=== PATIENT | male | born 1955 | race Two or more races ===

== ENCOUNTER 2023-12-04 09:34 | Outpatient (AMB) | payer OTHER, SELFPAY ==
--- NOTE | 2023-12-04 10:07 | PD.ORTHCLVIS ---
Vital signs 12/04/23 10:08 Height 1.7 m Height Method Stated Weight 117.934 kg Weight Measurement Method Standing Scale BMI 40.7 BP 119/75 Blood Pressure Source Automatic Cuff Blood Pressure Location Right Upper Arm Position Sitting Respiration 19 Pulse 74 Pulse Source Monitor Temp 97.7 F Temp Source Temporal Artery Scan Pulse Oximetry (%) 94 L Oxygen Delivery Method Room Air Med/Allergies Allergies & Medications Allergies No Known Allergies Allergy (Verified 12/04/23 10:09) Medication Reconciliation amlodipine 10 mg tablet 10 mg PO QDAY 08/24/18 [History Confirmed 12/04/23] methotrexate sodium 2.5 mg tablet 15 mg PO QWEEK 08/01/21 [History Confirmed 12/04/23] atenolol 50 mg tablet 50 mg PO DAILY 03/29/23 [History Confirmed 12/04/23] atorvastatin 20 mg tablet 20 mg PO DAILY 03/29/23 [History Confirmed 12/04/23] cholecalciferol (vitamin D3) 50 mcg (2,000 unit) capsule 50 mcg PO DAILY 03/29/23 [History Confirmed 12/04/23] dapagliflozin propanediol 10 mg tablet (Farxiga) 10 mg PO DAILY 03/29/23 [History Confirmed 12/04/23] folic acid 1 mg tablet 1 mg PO QPM 03/29/23 [History Confirmed 12/04/23] hydrochlorothiazide 25 mg tablet 25 mg PO DAILY 03/29/23 [History Confirmed 12/04/23] losartan 100 mg tablet 100 mg PO DAILY 03/29/23 [History Confirmed 12/04/23] metformin 500 mg tablet 500 mg PO QPM 03/29/23 [History Confirmed 12/04/23] prednisone 20 mg tablet 20 mg PO QDAY 03/29/23 [History Confirmed 12/04/23] Subjective Visit Visit for: follow up visit Immunization / Flu Flu Vaccine in the Last 12 Months: Yes Flu Vaccine Exclusion Criteria: Already Received History of Present Illness Chief complaint: KNEE PAIN Gabino is a pleasant 67-year-old male who presents today for bilateral knee pain. He has bilateral knee pain and bilateral knee osteoarthritis.. The right knee pain is worse than the left. This has been ongoing for quite a while. This is affecting his quality life and happiness. He is using a cane. He had injections in the past which were only lasted 1 week. He has actually lost 20 pounds since we last saw him. Personal History Occupation: RETIRED Red flag PMH: none Pain Pain level (0-10): 9 Pain duration: ALL DAY Pain location: anterior and posterior Pain quality: sharp, dull and aching Pain timing: increases with activity and stairs Associated signs & symptoms: none Ambulatory data Ambulatory device: none Treatments Number of previous injections: 1 Improvement with previous injections: No Improvement with PT: No Improvement with NSAIDS: no Review of Systems Review of Systems: All systems negative unless otherwise noted in HPI. Exam Exam Patient is in no acute distress and is cooperative with the examination today. Breathing is nonlabored. In no respiratory distress. Bilateral extremities were evaluated and demonstrates sensation intact to light touch. Palpable pedal pulses are present. No significant edema is present. Bilateral hips were examined. The patient has no pain with log roll of the hips. Internal rotation to 30 degrees and external rotation to 30 degrees is painless. Negative FADIR. The left knee was examined. The left knee is in [varus] alignment. Range of motion from [0-115] degrees. Knee is stable to varus and valgus as well as AP translation with <5mm. Patient has a [negative] McMurrays. There is [no] pain with patellofemoral compression and [no] crepitus noted. The knee is [tender] to palpation [medially]. The right knee was also examined. The right knee is in [varus] alignment. Range of motion from [0-120] degrees. Knee is stable to varus and valgus as well as AP translation with <5mm. Patient has a [negative] McMurrays. There is [no] pain with patellofemoral compression and [no] crepitus noted. The knee is [tender] to palpation [medially]. Bilateral knee x-rays demonstrate significant joint space narrowing medially and osteophytes both medially and laterally. These are nonweightbearing films. Assessment and Plan Problem List (1) Bilateral knee pain: Status: Acute Plan: Patient is a pleasant 67-year-old male with bilateral knee pain and bilateral knee osteoarthritis. The pain started to affect his quality life. His BMI is 44 at this time. WHe has lost about 20 pounds. Cortisone injections are no longer working for significant amount of time. We discussed that I would like for him to lose about 5 or 10 more pounds. We will also send him to physical therapy. Should this fail we will consider a total knee replacement. I have also given him a referral to a shoulder surgeon as he has significant limitations with overhead activities. (2) Bilateral primary osteoarthritis of knee: Status: Acute Advanced Care Planning Discussion Advance care planning discussed with:: patient Office Procedures GNS Level of Care Nursing/Assessment Patient Status: Established Patient Nursing Assessment/Reassesment: Medication Reconciliation, Update PMH in EMR and Vital Signs Coordination of Care: Complex Care and Chronic Disease 1-5, Education Complex Pt/Fam, Consent,records obtained, informed consent and Staff clarify orders Established Patient Charge Established Patient Point Assignment: 90 Established Patient Point Charge: EP Level 3 (80-115) Past Medical History Past Medical History Have you ever been diagnosed with any of the following: Neurological Problems Seizures: No Cardiology Problems Hypercholesterolemia: Yes Congestive Heart Failure: No Edema: No Cellulitis: No Hypertension: Yes Varicose Veins: No Respiratory Problems Chronic Obstructive Pulmonary Disease (COPD): No Asthma: No Tuberculosis: No Sleep Apnea: Yes Smoking: No Smoking Exposure: No Stomache/Intestinal Problems Hepatitis: No Ulcer: Yes Obesity: Yes Genital/Urinary Problems Renal Disease: No Musculoskeletal Problems Arthritis: Yes Endocrine Problems Diabetes Mellitus Type 1: No Diabetes Mellitus Type 2: No Blood Problems Sickle Cell Disease: No Other Problems Hospitalization: Yes Shingles: No Falls: No Blood Transfusions: Yes Blood Transfusion Reaction: No Anesthesia Reactions: No Chemotherapy: No Radiation Therapy: No MRSA: No Chicken Pox: Yes Measles: Yes Mumps: Yes Cancer: No Surgical History Pacemaker: No
[2023-12-04 10:08] VITALS: BP 119/75; PULSE 74; RESP 19; TEMP 36.5; O2SAT 94; BMI 40.7
== END 2023-12-04 10:33 | disposition home or self-care (01) ==
LOC: HODSRG 09:34
PROVIDERS: PCP Registered Nurse; Referring Provider Registered Nurse; Supervising Provider Orthopaedic Surgery Adult Reconstructive Orthopaedic Surgery; Visit Provider Orthopaedic Surgery Adult Reconstructive Orthopaedic Surgery
DX: M25.562 Pain in left knee (principal); M25.561 Pain in right knee; M17.0 Bilateral primary osteoarthritis of knee; E66.9 Obesity, unspecified; Z68.41 Body mass index [BMI] 40.0-44.9, adult; I10 Essential (primary) hypertension; E78.00 Pure hypercholesterolemia, unspecified; G47.30 Sleep apnea, unspecified
CPT/HCPCS: 99213; G0463

== ENCOUNTER 2024-01-29 07:52 | Outpatient (AMB) | payer OTHER, SELFPAY ==
[2024-01-29 08:03] VITALS: BP 124/81; PULSE 61; RESP 18; TEMP 36.6; O2SAT 96; BMI 40.1
--- NOTE | 2024-01-29 08:03 | PD.ORTHCLVIS ---
Vital signs 01/29/24 08:03 Height 1.7 m Height Method Stated Weight 116.148 kg Weight Measurement Method Standing Scale BMI 40.1 BP 124/81 Blood Pressure Source Automatic Cuff Blood Pressure Location Right Upper Arm Position Sitting Respiration 18 Pulse 61 Pulse Source Monitor Temp 97.8 F Temp Source Temporal Artery Scan Pulse Oximetry (%) 96 Oxygen Delivery Method Room Air Med/Allergies Allergies & Medications Allergies No Known Allergies Allergy (Verified 01/29/24 08:04) Medication Reconciliation amlodipine 10 mg tablet 10 mg PO QDAY 08/24/18 [History Confirmed 01/29/24] methotrexate sodium 2.5 mg tablet 15 mg PO QWEEK 08/01/21 [History Confirmed 01/29/24] atenolol 50 mg tablet 50 mg PO DAILY 03/29/23 [History Confirmed 01/29/24] atorvastatin 20 mg tablet 20 mg PO DAILY 03/29/23 [History Confirmed 01/29/24] cholecalciferol (vitamin D3) 50 mcg (2,000 unit) capsule 50 mcg PO DAILY 03/29/23 [History Confirmed 01/29/24] dapagliflozin propanediol 10 mg tablet (Farxiga) 10 mg PO DAILY 03/29/23 [History Confirmed 01/29/24] folic acid 1 mg tablet 1 mg PO QPM 03/29/23 [History Confirmed 01/29/24] hydrochlorothiazide 25 mg tablet 25 mg PO DAILY 03/29/23 [History Confirmed 01/29/24] losartan 100 mg tablet 100 mg PO DAILY 03/29/23 [History Confirmed 01/29/24] metformin 500 mg tablet 500 mg PO QPM 03/29/23 [History Confirmed 01/29/24] prednisone 20 mg tablet 20 mg PO QDAY 03/29/23 [History Confirmed 01/29/24] Exam Exam Patient is in no acute distress and is cooperative with the examination today. Breathing is nonlabored. In no respiratory distress. Bilateral extremities were evaluated and demonstrates sensation intact to light touch. Palpable pedal pulses are present. No significant edema is present. Bilateral hips were examined. The patient has no pain with log roll of the hips. Internal rotation to 30 degrees and external rotation to 30 degrees is painless. Negative FADIR. The left knee was examined. The left knee is in [varus] alignment. Range of motion from [0-115] degrees. Knee is stable to varus and valgus as well as AP translation with <5mm. Patient has a [negative] McMurrays. There is [no] pain with patellofemoral compression and [no] crepitus noted. The knee is [tender] to palpation [medially]. The right knee was also examined. The right knee is in [varus] alignment. Range of motion from [0-120] degrees. Knee is stable to varus and valgus as well as AP translation with <5mm. Patient has a [negative] McMurrays. There is [no] pain with patellofemoral compression and [no] crepitus noted. The knee is [tender] to palpation [medially]. Bilateral knee x-rays demonstrate significant joint space narrowing medially and osteophytes both medially and laterally. These are nonweightbearing films. Assessment and Plan Problem List (1) Bilateral knee pain: Status: Acute Plan: Patient is a pleasant 67-year-old male with bilateral knee pain and bilateral knee osteoarthritis. The patient has now lost over 40 pounds. His BMI is currently 40 and has plateaued on Ozempic. We thus discussed total knee replacement is a reasonable option. He has tried anti-inflammatories, physical therapy, and injections. I thus discussed total knee replacement is a reasonable option. The right side hurts worse and we will do the side. The nature and purpose of the total knee replacement, alternative method(s) of treatment, the material risks involved, and the possibility of complications were fully explained to the patient. The patient does NOT have any of the following contraindications to TKA: - Active infection of the knee joint, OR - Active systemic bacteremia, OR - Active skin infection or open wound at surgical site, OR - Neuropathic arthritis, OR - Severe, rapidly progressive neurological disease, OR - Severe medical condition that makes risks of surgery outweigh the potential benefit The patient was told the most common risks and complications associated with a total knee replacement include, but are not limited to: blood clots in the leg, fatal pulmonary embolism, dislocation of the prosthesis, intraoperative and postoperative fractures of the femur or tibia, infection, failure of the prosthesis or grafting materials, complications from anesthesia, reactions to blood transfusions, postoperative leg length inequality, instability of the knee replacement, nerve damage or injury, vascular injury, delayed wound healing, infection, other injury or even . In addition, there are risks associated with anesthesia given during this operation. Also, the patient was told that after undergoing a total knee replacement there may still be persistent pain or disability. The patient was informed that the success of this operation in part depends upon the mechanical devices which are going to be implanted and that these devices can fail or malfunction, and may need to be repaired or replaced and there are no guarantees as to the longevity of this device or its parts and that it or its parts could fail prematurely. The patient was also notified that during the course of surgery, there may be a need to use bone graft from donors, and that any bone graft used will be carefully screened for communicable diseases, including AIDS, hepatitis, Luis Enrique-Creutzfeldt, or other diseases, but despite the screening procedures, there is a small chance that they could contract one of these diseases. Finally, the patient was asked to follow completely and fully with all advice and recommended treatments, and that recovery and ultimate outcome are affected by their compliance with recommended treatment. We discussed the risks, benefits and treatment alternatives, and the patient is interested in proceeding with surgery. We will try to set this up as expeditiously as possible. (2) Bilateral primary osteoarthritis of knee: Status: Acute Advanced Care Planning Discussion Advance care planning discussed with:: patient Office Procedures GNS Level of Care Nursing/Assessment Patient Status: Established Patient Nursing Assessment/Reassesment: Medication Reconciliation, Update PMH in EMR and Vital Signs Coordination of Care: Complex Care and Chronic Disease 1-5, Education Complex Pt/Fam, Consent,records obtained, informed consent, Results/Orders obtained and Staff clarify orders Special Needs: Language special needs Established Patient Charge Established Patient Point Assignment: 95 Established Patient Point Charge: EP Level 3 (80-115) MA Intake Visit Data Collection New Patient or Established: Established Patient (seen at [facility] within 3 years) Reason for Visit:: F/U RIGHT KNEE PAIN Seen by Clinical Staff ONLY (RN/MA): No Verbal consent obtained for Telemed visit?: No Medical Field Representative Required: No PCP or OBGYN visit in last 3 months: Yes Hx Now: No Do You Feel Safe at Home: Yes Authorities Contacted: N/A Questionairres Past Medical History Past Medical History Have you ever been diagnosed with any of the following: Neurological Problems Seizures: No Cardiology Problems Hypercholesterolemia: Yes Congestive Heart Failure: No Edema: No Cellulitis: No Hypertension: Yes Varicose Veins: No Respiratory Problems Chronic Obstructive Pulmonary Disease (COPD): No Asthma: No Tuberculosis: No Sleep Apnea: Yes Smoking: No Smoking Exposure: No Stomache/Intestinal Problems Hepatitis: No Ulcer: Yes Obesity: Yes Genital/Urinary Problems Renal Disease: No Musculoskeletal Problems Arthritis: Yes Endocrine Problems Diabetes Mellitus Type 1: No Diabetes Mellitus Type 2: No Blood Problems Sickle Cell Disease: No Other Problems Hospitalization: Yes Shingles: No Falls: No Blood Transfusions: Yes Blood Transfusion Reaction: No Anesthesia Reactions: No Chemotherapy: No Radiation Therapy: No MRSA: No Chicken Pox: Yes Measles: Yes Mumps: Yes Cancer: No Surgical History Pacemaker: No Subjective Visit Visit for: follow up visit and knee Immunization / Flu Flu Vaccine in the Last 12 Months: No Flu Vaccine Exclusion Criteria: No Exclusion Criteria History of Present Illness Chief complaint: F/U RIGHT KNEE PAIN Gabino is a pleasant 68-year-old male with right greater than left knee pain has been ongoing for years. He is using a cane because of pain. He tried multiple injections and physical therapy. He is also tried anti-inflammatories. He was previously morbidly obese. We made him lose weight he is lost over 40 pounds. His weight is now stabilized on Ozempic. He would like to get surgery as the pain is affecting his quality life and happiness Pain Pain level (0-10): 10 Pain duration: ALL DAY Pain location: inside (medial), outside (lateral), anterior and posterior Pain quality: sharp, dull and aching Pain timing: night, increases with activity and stairs Associated signs & symptoms: stiffness Ambulatory data Ambulatory device: cane Treatments Improvement with previous injections: No Improvement with PT: No Improvement with NSAIDS: n/a Review of Systems Review of Systems: All systems negative unless otherwise noted in HPI.
== END 2024-01-29 08:37 | disposition home or self-care (01) ==
PROVIDERS: PCP Registered Nurse; Referring Provider Registered Nurse; Supervising Provider Orthopaedic Surgery Adult Reconstructive Orthopaedic Surgery; Visit Provider Orthopaedic Surgery Adult Reconstructive Orthopaedic Surgery
DX: M25.562 Pain in left knee (principal); M25.561 Pain in right knee; M17.0 Bilateral primary osteoarthritis of knee; I10 Essential (primary) hypertension; E78.00 Pure hypercholesterolemia, unspecified; E66.01 Morbid (severe) obesity due to excess calories; Z68.41 Body mass index [BMI] 40.0-44.9, adult
CPT/HCPCS: 99213; G0463

== ENCOUNTER → 2024-02-09 | Outpatient (CLI) | payer OTHER, SELFPAY ==
--- NOTE | 2024-02-09 16:02 | XR_ITS ---
Examination: PA lateral chest 2 views Technique: Upright PA lateral chest 2 views Exam date and time: February 09, 2024 1639 hrs. Comparison August 29, 2023 Indications: Preop, diagnosis COPD Findings: Moderate hyperexpansion with increased AP dimension chest Normal heart size No pneumonia or pulmonary edema Fat pad in the left cardiophrenic angle Significant osteopenia Impression: No pneumonia or pulmonary edema
[2024-02-09 17:41] LABS: Basophils % (Auto) 0 % (0-2.5); Eosinophils # (Auto) 0.3 Thou/mm3 (0.0-0.5); Eosinophils % (Auto) 3 % (0-10); Hematocrit 43.9 % (41.0-53.0); Hemoglobin 14.2 g/dL (13.5-16.0); Immature Granulocytes % (Auto) 1 % (0-0); Immature Granulocytes Auto 0.05 Thou/mm3 (0.00-0.00); Lymphocytes # (Auto) 2.5 Thou/mm3 (1.0-4.8); Lymphocytes % (Auto) 25 % (10-50); Mean Corpuscular HGB Conc 32.3 g/dl (31.0-37.0); Mean Corpuscular Hemoglobin 34.5 pg (25.0-35.0); Mean Corpuscular Volume 107 fL (80-100); Monocytes % (Auto) 10 % (0-12); Neutrophils # (Auto) 6.2 Thou/mm3 (1.8-7.7); Neutrophils % (Auto) 62 % (37-80); Nucleated Red Blood Cell % 0 /100 WBC (0); Platelet Count 175 Thou/mm3 (140-440); RDW Standard Deviation 61.9 fL (35.1-43.9); Red Blood Count 4.11 Miln/mm3 (4.50-5.90)
[2024-02-09 17:48] LABS: Partial Thromboplastin Time 24.5 Seconds (22.0-36.0); Prothrombin Time 11.1 Seconds (9.0-12.2)
[2024-02-09 17:51] LABS: Glucose Estimated Average 94 mg/dL (80-131); Hemoglobin A1C 4.9 % Hgb (4.8-6.0)
[2024-02-09 17:52] LABS: Alanine Aminotransferase 35 U/L (10-49); Albumin, Serum 4.8 gm/dL (3.4-4.8); Albumin/Globulin Ratio 2.2 (1.2-2.2); Alkaline Phosphatase 100 U/L (46-116); Anion Gap 9 (7-16); Aspartate Amino Transferase 22 U/L (0-34); BUN/Creatinine Ratio 17 Ratio (12-20); Bilirubin,Total 1.3 mg/dL (0.3-1.2); Blood Urea Nitrogen 19 mg/dL (9-23); Calcium 9.5 mg/dL (8.3-10.6); Calcium (Corrected) 9.5 mg/dL (8.5-10.1); Carbon Dioxide 26.1 mMol/L (20.0-31.0); Chloride 106 mMol/L (98-107); Creatinine (Component) 1.1 mg/dL (0.6-1.3); Globulin 2.2 gm/dL (2.3-3.5); Glucose 85 mg/dL (74-106); Osmolality,Calculated 282 (275-295); Potassium 4.4 mMol/L (3.4-5.1); Sodium 141 mMol/L (136-145); eGFR > 60 See Note
== END | disposition home or self-care (01) ==
LOC: CDIM 15:58 → COPL 16:44
PROVIDERS: Referring Provider Registered Nurse; Visit Provider Radiology Diagnostic Radiology
DX: J44.9 Chronic obstructive pulmonary disease, unspecified (principal); Z01.818 Encounter for other preprocedural examination; E11.65 Type 2 diabetes mellitus with hyperglycemia
CPT/HCPCS: 36415; 71046; 80053; 81001; 83036; 85025; 85610; 85730

== ENCOUNTER → 2024-02-11 | Outpatient (CLI) | payer OTHER, MEDICAID, SELFPAY ==
[2024-02-11 10:15] LABS: Collection Type, Urine Clean Catch
[2024-02-11 11:33] LABS: Bilirubin,Urine Negative (Negative); Blood,Urine Negative (Negative); Clarity,Urine Clear (Clear/Hazy); Color,Urine Yellow (Lt Yel-Yel); Culture Indicated,Urine Not Indicated; Glucose, Urine 4+ (Negative); Ketones,Urine Negative (Negative); Leukocyte Esterase,Urine Negative (Negative); Nitrite,Urine Negative (Negative); PH,Urine 5.5 (5.0-7.0); Protein,Urine Trace (Neg - Trace); RBC,Urine 2 /hpf (0-3); Specific Gravity,Urine 1.037 (1.001-1.035); Squamous Epithelial Cell,Urine 2 /hpf (0-5); Urobilinogen,Urine Negative mg/dL (0.0-1.0); WBC,Urine 3 /hpf (0-5)
== END | disposition home or self-care (01) ==
PROVIDERS: Referring Provider Registered Nurse; Visit Provider Registered Nurse
DX: Z01.818 Encounter for other preprocedural examination (principal)
CPT/HCPCS: 81001

== ENCOUNTER → 2024-02-18 | Outpatient (CLI) | payer OTHER, MEDICAID, SELFPAY ==
--- NOTE | 2024-02-18 14:30 | XR_ITS ---
Examination: CT right lower extremity, without contrast. 2-D sagittal reconstructions. 2-D coronal reconstructions. 3-D reconstructions. Date and time of exam:February 18, 2024 1518 hours INDICATIONS: Right knee pain osteoarthritis beginning 5 years ago CTDI: vol (mGy):12.1 DLP: (mGycm):985 Technique: Multiple 1.25 mm axial sections of the right lower extremity without intravenous contrast have been obtained. 2-D sagittal and coronal reconstructions have been obtained. 3-D reconstructions have been obtained. Low dose protocols were performed. One or more of the following dose reduction techniques were used; automated exposure control, adjustment of the mA and/or KV according to patient size, use of iterative reconstruction technique. Findings: Moderate osteopenia Mild to moderate narrowing right hip joint No hip fracture or hip dislocation Severe narrowing medial joint space left knee Significant osteoarthritis lateral patellofemoral joints No fracture or avascular necrosis IMPRESSION: Severe narrowing medial joint space left knee
== END | disposition home or self-care (01) ==
PROVIDERS: PCP Registered Nurse; Referring Provider Orthopaedic Surgery Adult Reconstructive Orthopaedic Surgery; Visit Provider Orthopaedic Surgery Adult Reconstructive Orthopaedic Surgery
DX: M25.862 Other specified joint disorders, left knee (principal)
CPT/HCPCS: 73700

== ENCOUNTER 2024-02-29 06:50 | Day surgery (SDC) | payer OTHER, SELFPAY ==
[2024-02-23 09:13] VITALS: BMI 40.4
[2024-02-23 10:57] LABS: Basophils % (Auto) 0 % (0-2.5); Eosinophils # (Auto) 0.1 Thou/mm3 (0.0-0.5); Eosinophils % (Auto) 1 % (0-10); Hematocrit 44.1 % (41.0-53.0); Hemoglobin 14.4 g/dL (13.5-16.0); Immature Granulocytes % (Auto) 0 % (0-0); Immature Granulocytes Auto 0.03 Thou/mm3 (0.00-0.00); Lymphocytes # (Auto) 2.2 Thou/mm3 (1.0-4.8); Lymphocytes % (Auto) 26 % (10-50); Mean Corpuscular HGB Conc 32.7 g/dl (31.0-37.0); Mean Corpuscular Hemoglobin 34.4 pg (25.0-35.0); Mean Corpuscular Volume 105 fL (80-100); Monocytes # (Auto) 0.8 Thou/mm3 (0.0-0.8); Monocytes % (Auto) 9 % (0-12); Neutrophils # (Auto) 5.2 Thou/mm3 (1.8-7.7); Neutrophils % (Auto) 63 % (37-80); Nucleated Red Blood Cell % 0 /100 WBC (0); Platelet Count 238 Thou/mm3 (140-440); RDW Standard Deviation 55.8 fL (35.1-43.9); Red Blood Count 4.19 Miln/mm3 (4.50-5.90); White Blood Count 8.2 Thou/mm3 (3.8-10.6)
[2024-02-23 11:06] LABS: Partial Thromboplastin Time 25.6 Seconds (22.0-36.0); Prothrombin Time 10.8 Seconds (9.0-12.2)
[2024-02-23 11:14] LABS: Alanine Aminotransferase 34 U/L (10-49); Albumin, Serum 5.1 gm/dL (3.4-4.8); Alkaline Phosphatase 96 U/L (46-116); Anion Gap 8 (7-16); Aspartate Amino Transferase 22 U/L (0-34); BUN/Creatinine Ratio 15 Ratio (12-20); Bilirubin,Total 1.3 mg/dL (0.3-1.2); Blood Urea Nitrogen 16 mg/dL (9-23); Calcium 9.8 mg/dL (8.3-10.6); Calcium (Corrected) 9.8 mg/dL (8.5-10.1); Carbon Dioxide 25.8 mMol/L (20.0-31.0); Chloride 107 mMol/L (98-107); Creatinine (Component) 1.1 mg/dL (0.6-1.3); Estimated Creatinine Clearance 79.7 mL/min (>60); Globulin 2.5 gm/dL (2.3-3.5); Glucose 102 mg/dL (74-106); Osmolality,Calculated 282 (275-295); Potassium 4.1 mMol/L (3.4-5.1); Sodium 141 mMol/L (136-145); Total Protein 7.6 gm/dL (5.7-8.2); eGFR > 60 See Note
[2024-02-29] VITALS (12 sets, daily range): BP systolic 142–163; BP diastolic 74–93; PULSE 55–70; RESP 16–26; TEMP 36.2–36.4; O2SAT 94–99; BMI 40.6
[2024-02-29] MEDS: MELOXICAM 7.5 MG TABLET PO (08:09)
[2024-02-29] MEDS: PREGABALIN 75 MG CAPSULE PO (08:10)
[2024-02-29] MEDS: ACETAMINOPHEN 325 MG TABLET 650 MG PO (08:10)
[2024-02-29] MEDS: RINGERS LACTATED 1000 ML 1,000 ML 20 ML IV (08:11)
--- NOTE | 2024-02-29 10:45 | ESOP_ITS ---
Date of Procedure 02/29/24 Pre Op Diagnosis right knee osteoarthritis Post Op Diagnosis right knee osteoarthritis Procedure right total knee replacement Findings full thickness cartilage loss and osteophytes Procedure Description Indication: The patient is a 68 year old who has a long history of right knee pain. X-rays show degenerative arthritis involving the knee. Over the past several years the patient has had increasing pain, progressive limitation in function. He has failed conservative measures including activity modification, physical therapy, injections, anti-inflammatories, and assistive devices. After a lengthy discussion of the risks and benefits, the patient presents now for total knee replacement. The nature and purpose of the total knee replacement, alternative method(s) of treatment, the material risks involved, and the possibility of complications were fully explained to the patient. The patient was told the most common risks and complications associated with a total knee replacement include, but are not limited to blood clots in the leg, fatal pulmonary embolism, dislocation of the prosthesis, intraoperative and postoperative fractures of the femur or tibia, infection, failure of the prosthesis or grafting materials, complications from anesthesia, reactions to blood transfusions, postoperative leg length inequality, instability of the knee replacement, nerve damage or injury, vascular injury, delayed wound healing, infections, other injury or even . In addition, there are risks associated with anesthesia given during this operation, temporary or permanent numbness on the skin lateral to the incision can be a complication unique to total knee surgery, and kneeling can be painful after knee replacement surgery. Also, the patient was told that after undergoing a total knee replacement there may still be pain or disability. We discussed with the patient that we will be using a robot-assisted technology. We discussed that there is a possibility of converting to manual instrumentation. The patient was informed that the success of this operation in part depends upon the mechanical devices which are going to be implanted and that these devices can fail or malfunction, and may need to be repaired or replaced and there are no guarantees as to the longevity of this device or its part and that it or its parts could fail prematurely. Finally, the patient was asked to follow completely and fully with all advice and recommended treatments, and that recovery and ultimate outcome are affected by their compliance with recommended treatment. Surgical technique: Patient was marked and consented in the pre-operative area. The patient was brought to the operating room and placed on the operating table in a supine position. Prior to positioning, a timeout procedure was performed between the surgeon, the anesthesiologist, and the nursing staff where the patient and the operative side were identified and confirmed. After adequate general anesthetic was obtained, the right lower extremity was prepped and draped in the usual sterile fashion. A weight based dose of Cefazolin were administered within 1 hour prior to incision. The robot was preregistered and calirated before the incision. The extremity was exsanguinated with an esmarch badge and tourniquet inflated to 250mmHg. A midline incision was made. A median parapatellar arthrotomy was made. The patella was subluxed laterally. A medial release was performed to expose the medial tibia. His femoral and tibial pins were placed through an intra incisional manner for both cases. Every effort was made to ensure that the distalmost aspect of the pin was hung in the second cortex. The arrays were then tightened several times to ensure that it was fixed for the remainder of the case. Both femoral and tibial checkpoints were then placed. We then went through the registration process of the bone. We then assessed the knee deformity and attempted to correct it. We also used the robot to aid in judging laxity in both extension and flexion. Final based on laxity and alignment we changed the preoperative assessment to obtain proper proper implant positioning and to correct deformity. Attention was then placed to the tibia. We made a tibial cut using the robot ensuring that both the MCL and the patella tendon were protected with retractors. We then went to the femur and made the posterior cut followed by the anterior cut and the anterior chamfer. The bone was then removed and we made a distal femur cut and a posterior chamfer cut. We verified all cuts. A trial reduction was performed with a size 5 femoral component and a size 5 keeled tibial component. The patella tracked centrally, and no lateral retinacular release was necessary. The trial implants were removed. The arrays, pins, and checkpoints were all removed. We performed a verification that all pins were removed. The cut bone surfaces were lavaged. A size 5 right femoral component, a size 5 keeled tibial component were impacted into position. The knee was felt to be well balanced in the sagittal and coronal plane. The final 5x11 mm cruciate- substituting articular insert was impacted into the tibial tray. The knee was brought out to full extension, flexed up to 120 degrees. It was stable to varus and valgus stress and appropriately balanced in flexion and extension. The wounds were copiously irrigated following deflation of tourniquet. The medial retinaculum was reapproximated with #1 vicryl and quill. The subcutaneous tissues were closed with 0 and 2-0 interrupted Vicryl. The skin was closed with 3-0 Monofilament V loc suture. A sterile dressing was applied. The patient was transferred to a bed and brought to recovery in stable condition. The patient tolerated the procedure well. There were no intraoperative complications. Sponge and needle counts were correct times 2. As the attending surgeon, I attest I was present and performed the entire operation. Grafts/Implants Size 5 CR Femur Size 5 Tibia 11mm poly CS Anesthesia GETA Implants tay Pathology / specimen None Pathology comment: none Estimated Blood Loss 150 Condition Stable Disposition same day Surgeon Armando Solano MD Surgical Staff Operation Date: 02/29/24 10:00 Case Staff Anesthesiologist: Chris De Leon RN First Assistant: Guera Catalan
--- NOTE | 2024-02-29 10:49 | XR_ITS ---
Examination: Right knee 2 views Technique one AP lateral right knee 2 views Exam date and time: February 29, 2024 1147 hours INDICATIONS: Postop knee replacement FINDINGS: Moderate osteopenia Total right knee arthroplasty Satisfactory alignment No fracture IMPRESSION: Total right knee arthroplasty with satisfactory alignment
--- NOTE | 2024-02-29 11:05 | SUR.PHASEI ---
pt received from OR in recovery bay 7. pt obtunded, breathing unlabored on oxymask 8l, oral airway in place. v/s stable. pt dressing to right lower extremity cdi. report received from Dr. De Leon and Wei ISIDRO.
[2024-02-29] MEDS: fentaNYL CIT INJ 50 mCg/ML AMP 2ML 25 MCG IV ×2 (11:23→11:52)
--- NOTE | 2024-02-29 11:30 | SUR.PHASEI ---
pt able to tolerate jello and oral fluids without difficulty swallowing or nausea/vomiting.
[2024-02-29] MEDS: oxyCODONE HCL 5 MG IR TAB PO (11:38)
[2024-02-29] MEDS: CYCLObenzaPRINE 5 MG TABLET 10 MG PO (11:38)
[2024-02-29] MEDS: ACETAMINOPHEN IVPB 1,000 MG/100 ML VIAL 250 MG IV (13:03)
--- NOTE | 2024-02-29 13:55 | SUR.PHASEII ---
pt awake and alert, breathing unlabored on room air. v/s stable. pt dressing to right lower extremity cdi. pt cleared by physical therapist David. pt able to ambulate using walker with steady gait. d/c instructions given with Padmini in room, all questions answered. pt d/c via wheelchair with all belongings.
== END 2024-02-29 13:55 | disposition home health service (06) ==
PROVIDERS: Anesthesiology; PCP Family Medicine; Referring Provider Orthopaedic Surgery Adult Reconstructive Orthopaedic Surgery; Visit Provider Orthopaedic Surgery Adult Reconstructive Orthopaedic Surgery
PROC: (CPT 27447; principal; 2024-02-29 09:45)
DX: M17.11 Unilateral primary osteoarthritis, right knee (principal); M25.761 Osteophyte, right knee
CPT/HCPCS: 27447; 20985; 36415; 73560; 80053; 85025; 85610; 85730; 97162; A4217; C1713; C1776; J0131; J0690; J2405; J2704; J2765; J2795; J3010; J3490; J7030; J7120; J7999; A4648; A4649; A9270

== ENCOUNTER 2024-03-15 13:10 | Outpatient (AMB) | payer OTHER, MEDICAID, SELFPAY ==
[2024-03-15 13:16] VITALS: BP 134/64; PULSE 77; RESP 18; TEMP 36.6; O2SAT 95; BMI 40.0
--- NOTE | 2024-03-15 13:16 | PD.ORTHCLVIS ---
Vital signs 03/15/24 13:16 Height 1.7 m Height Method Stated Weight 115.779 kg Weight Measurement Method Standing Scale BMI 40.0 BP 134/64 H Blood Pressure Source Automatic Cuff Blood Pressure Location Right Upper Arm Position Sitting Respiration 18 Pulse 77 Pulse Source Monitor Temp 97.8 F Temp Source Temporal Artery Scan Pulse Oximetry (%) 95 Oxygen Delivery Method Room Air Med/Allergies Allergies & Medications Allergies No Known Allergies Allergy (Verified 03/15/24 13:17) Medication Reconciliation amlodipine 10 mg tablet 10 mg PO QDAY 08/24/18 [History Confirmed 03/15/24] methotrexate sodium 2.5 mg tablet 15 mg PO QWEEK 08/01/21 [History Confirmed 03/15/24] atenolol 50 mg tablet 50 mg PO DAILY 03/29/23 [History Confirmed 03/15/24] atorvastatin 20 mg tablet 20 mg PO DAILY 03/29/23 [History Confirmed 03/15/24] dapagliflozin propanediol 10 [facility] 10 mg PO DAILY 03/29/23 [History Confirmed 03/15/24] folic acid 1 mg tablet 1 mg PO DAILY 03/29/23 [History Confirmed 03/15/24] losartan 100 mg tablet 100 mg PO DAILY 03/29/23 [History Confirmed 03/15/24] metformin 500 mg tablet 500 mg PO QPM 03/29/23 [History Confirmed 03/15/24] acetaminophen 500 mg tablet (Acetaminophen Extra Strength) 1,000 mg (2 x 500 mg) PO Q6H PRN pain #90 tabs 02/29/24 [Rx Confirmed 03/15/24] aspirin 81 mg tablet,delayed release 81 mg PO BID #60 tabs 02/29/24 [Rx Confirmed 03/15/24] doxycycline hyclate 100 mg tablet 100 mg PO BID #14 tabs 02/29/24 [Rx Confirmed 03/15/24] gabapentin 300 mg capsule 300 mg PO .qhs #30 caps 02/29/24 [Rx Confirmed 03/15/24] oxycodone 5 mg tablet 5 mg PO Q6H PRN pain #28 tabs 02/29/24 [Rx Confirmed 03/15/24] semaglutide 1 mg/dose (4 mg/3 mL) subcutaneous pen injector (Ozempic) 1 mg subcut QWEEK 02/29/24 [History Confirmed 03/15/24] sennosides 8.6 mg-docusate sodium 50 mg tablet (Senna-S) 1 tab-cap PO QDAY #30 tabs 02/29/24 [Rx Confirmed 03/15/24] Exam Exam Patient is in no acute distress and is cooperative with the examination today. Breathing is nonlabored. In no respiratory distress. Bilateral extremities were evaluated and demonstrates sensation intact to light touch. Palpable pedal pulses are present. No significant edema is present. Bilateral hips were examined. The patient has no pain with log roll of the hips. Internal rotation to 30 degrees and external rotation to 30 degrees is painless. Negative FADIR. The left knee was examined. The left knee is in [varus] alignment. Range of motion from [0-115] degrees. Knee is stable to varus and valgus as well as AP translation with <5mm. Patient has a [negative] McMurrays. There is [no] pain with patellofemoral compression and [no] crepitus noted. The knee is [tender] to palpation [medially]. Right knee incision is clean dry and intact. There are well-healed blisters at this time that are dry Assessment and Plan Problem List (1) Bilateral knee pain: Status: Acute Plan: Patient is a pleasant 67-year-old male with bilateral knee pain and bilateral knee osteoarthritis. He is status post right total knee replacement. He is doing well. Incisions clean dry intact. He had prior procedures that are now well-healed We will see him back in 4 weeks with new x-rays (2) Bilateral primary osteoarthritis of knee: Status: Acute Advanced Care Planning Discussion Advance care planning discussed with:: patient Office Procedures GNS Level of Care Nursing/Assessment Patient Status: Established Patient Nursing Assessment/Reassesment: Medication Reconciliation, Update PMH in EMR and Vital Signs Coordination of Care: Complex Care and Chronic Disease 1-5, Education Complex Pt/Fam, Consent,records obtained, informed consent, Results/Orders obtained and Staff clarify orders Special Needs: Language special needs Established Patient Charge Established Patient Point Assignment: 95 Established Patient Point Charge: EP Level 3 (80-115) MA Intake Visit Data Collection New Patient or Established: Established Patient (seen at [facility] within 3 years) Reason for Visit:: 2 WK POST OP Seen by Clinical Staff ONLY (RN/MA): No Verbal consent obtained for Telemed visit?: No Desktop Specialist Required: No PCP or OBGYN visit in last 3 months: Yes Hx Now: No Do You Feel Safe at Home: Yes Authorities Contacted: N/A Questionairres Past Medical History Past Medical History Have you ever been diagnosed with any of the following: Neurological Problems Seizures: No Cardiology Problems Hypercholesterolemia: Yes Congestive Heart Failure: No Edema: No Cellulitis: No Hypertension: Yes Varicose Veins: No Respiratory Problems Chronic Obstructive Pulmonary Disease (COPD): No Asthma: No Pneumonia: Yes Tuberculosis: No Sleep Apnea: Yes (was not able to use CPAP) Smoking: No Smoking Exposure: No Stomache/Intestinal Problems Hepatitis: No Gastrointestinal Bleed: Yes (ulcer) Ulcer: Yes Obesity: Yes Genital/Urinary Problems Renal Disease: No Musculoskeletal Problems Arthritis: Yes Endocrine Problems Diabetes Mellitus Type 1: No Diabetes Mellitus Type 2: Yes Blood Problems Anemia: Yes Sickle Cell Disease: No Other Problems Hospitalization: Yes Shingles: No Falls: No Blood Transfusions: Yes Blood Transfusion Reaction: No Anesthesia Reactions: No Chemotherapy: No Radiation Therapy: No MRSA: No Chicken Pox: Yes Measles: Yes Mumps: Yes Cancer: No Surgical History Pacemaker: No Subjective Visit Visit for: post op #1 and knee Immunization / Flu Flu Vaccine in the Last 12 Months: No Flu Vaccine Exclusion Criteria: No Exclusion Criteria History of Present Illness Chief complaint: 2 WK POST OP RT TKA Gabino is a pleasant 68-year-old male with right greater than left knee pain has been ongoing for years. He is using a cane because of pain. He tried multiple injections and physical therapy. He is also tried anti-inflammatories. He was previously morbidly obese. We made him lose weight he has lost over 40 pounds. His weight is now stabilized on Ozempic. He would like to get surgery as the pain is affecting his quality life and happiness Pain Pain level (0-10): 5 Pain duration: ALL DAY Pain location: inside (medial), outside (lateral) and anterior Pain quality: sharp, dull and aching Pain timing: increases with activity Associated signs & symptoms: numbness and stiffness Ambulatory data Ambulatory device: cane Treatments Improvement with previous injections: No Improvement with PT: No Improvement with NSAIDS: no Review of Systems Review of Systems: All systems negative unless otherwise noted in HPI.
== END 2024-03-15 13:46 | disposition home or self-care (01) ==
PROVIDERS: Supervising Provider Orthopaedic Surgery Adult Reconstructive Orthopaedic Surgery; Visit Provider Orthopaedic Surgery Adult Reconstructive Orthopaedic Surgery
DX: M25.562 Pain in left knee (principal); M25.561 Pain in right knee; M17.0 Bilateral primary osteoarthritis of knee; Z96.651 Presence of right artificial knee joint; I10 Essential (primary) hypertension; E78.00 Pure hypercholesterolemia, unspecified
CPT/HCPCS: 99213; G0463

== ENCOUNTER → 2024-04-05 | Outpatient (CLI) | payer OTHER, MEDICAID, SELFPAY ==
--- NOTE | 2024-04-05 | XR_ITS ---
Examination: Right knee 4 views Technique: AP oblique lateral axial right knee 4 views Exam date and time: April 05, 2024 1326 hrs. Indications: Postop knee replacement Findings: Total right knee arthroplasty. Satisfactory alignment. No patellar dislocation No loosening of the prosthetic components Impression: Total right knee arthroplasty with satisfactory alignment
== END | disposition home or self-care (01) ==
LOC: CDIM 11:58
PROVIDERS: PCP Family Medicine; Referring Provider Orthopaedic Surgery Adult Reconstructive Orthopaedic Surgery; Visit Provider Orthopaedic Surgery Adult Reconstructive Orthopaedic Surgery
DX: M17.11 Unilateral primary osteoarthritis, right knee (principal); Z96.651 Presence of right artificial knee joint
CPT/HCPCS: 73564

== ENCOUNTER → 2024-04-08 | Outpatient (CLI) | payer OTHER, MEDICAID, SELFPAY ==
--- NOTE | 2024-04-08 09:10 | XR_ITS ---
Examination: Right shoulder 2 views Technique: AP external rotation AP internal rotation right shoulder 2 views Exam date and time: March 31, 2024 0923 hrs. Indications: Chronic shoulder pain years. Findings: Severe osteoarthritis glenohumeral joint, severe joint space narrowing and subarticular sclerosis Prominent osteopenia No fracture Impression: Severe osteoarthritis glenohumeral joint
== END | disposition home or self-care (01) ==
LOC: CDIM 09:03
PROVIDERS: Referring Provider Registered Nurse; Visit Provider Registered Nurse
DX: M19.011 Primary osteoarthritis, right shoulder (principal)
CPT/HCPCS: 73030

== ENCOUNTER 2024-04-12 14:08 | Outpatient (AMB) | payer OTHER, MEDICAID, SELFPAY ==
[2024-04-12 14:13] VITALS: BP 119/71; PULSE 71; RESP 18; TEMP 36.3; O2SAT 95; BMI 40.7
--- NOTE | 2024-04-12 14:13 | PD.ORTHCLVIS ---
Vital signs 04/12/24 14:13 Height 1.7 m Height Method Stated Weight 117.736 kg Weight Measurement Method Standing Scale BMI 40.7 BP 119/71 Blood Pressure Source Automatic Cuff Blood Pressure Location Left Upper Arm Position Sitting Respiration 18 Pulse 71 Pulse Source Monitor Temp 97.3 F Temp Source Temporal Artery Scan Pulse Oximetry (%) 95 Oxygen Delivery Method Room Air Med/Allergies Allergies & Medications Allergies No Known Allergies Allergy (Verified 04/12/24 14:13) Medication Reconciliation amlodipine 10 mg tablet 10 mg PO QDAY 08/24/18 [History Confirmed 04/12/24] methotrexate sodium 2.5 mg tablet 15 mg PO QWEEK 08/01/21 [History Confirmed 04/12/24] atenolol 50 mg tablet 50 mg PO DAILY 03/29/23 [History Confirmed 04/12/24] atorvastatin 20 mg tablet 20 mg PO DAILY 03/29/23 [History Confirmed 04/12/24] dapagliflozin propanediol 10 mg tablet (Farxiga) 10 mg PO DAILY 03/29/23 [History Confirmed 04/12/24] folic acid 1 mg tablet 1 mg PO DAILY 03/29/23 [History Confirmed 04/12/24] losartan 100 mg tablet 100 mg PO DAILY 03/29/23 [History Confirmed 04/12/24] metformin 500 mg tablet 500 mg PO QPM 03/29/23 [History Confirmed 04/12/24] acetaminophen 500 mg tablet (Acetaminophen Extra Strength) 1,000 mg (2 x 500 mg) PO Q6H PRN pain #90 tabs 02/29/24 [Rx Confirmed 04/12/24] aspirin 81 mg tablet,delayed release 81 mg PO BID #60 tabs 02/29/24 [Rx Confirmed 04/12/24] doxycycline hyclate 100 mg tablet 100 mg PO BID #14 tabs 02/29/24 [Rx Confirmed 04/12/24] gabapentin 300 mg capsule 300 mg PO .qhs #30 caps 02/29/24 [Rx Confirmed 04/12/24] oxycodone 5 mg tablet 5 mg PO Q6H PRN pain #28 tabs 02/29/24 [Rx Confirmed 04/12/24] semaglutide 1 mg/dose (4 mg/3 mL) subcutaneous pen injector (Ozempic) 1 mg subcut QWEEK 02/29/24 [History Confirmed 04/12/24] sennosides 8.6 mg-docusate sodium 50 mg tablet (Senna-S) 1 tab-cap PO QDAY #30 tabs 02/29/24 [Rx Confirmed 04/12/24] Exam Exam Patient is in no acute distress and is cooperative with the examination today. Breathing is nonlabored. In no respiratory distress. Bilateral extremities were evaluated and demonstrates sensation intact to light touch. Palpable pedal pulses are present. No significant edema is present. Bilateral hips were examined. The patient has no pain with log roll of the hips. Internal rotation to 30 degrees and external rotation to 30 degrees is painless. Negative FADIR. The left knee was examined. The left knee is in [varus] alignment. Range of motion from [0-115] degrees. Knee is stable to varus and valgus as well as AP translation with <5mm. Patient has a [negative] McMurrays. There is [no] pain with patellofemoral compression and [no] crepitus noted. The knee is [tender] to palpation [medially]. Right knee incision is clean dry and intact. ROM is 0-110 Assessment and Plan Problem List (1) Bilateral knee pain: Status: Acute Plan: Patient is a pleasant 67-year-old male with bilateral knee pain and bilateral knee osteoarthritis. He is status post right total knee replacement. He is doing well. Will see him back in 6 weeks (2) Bilateral primary osteoarthritis of knee: Status: Acute Advanced Care Planning Discussion Advance care planning discussed with:: patient Office Procedures GNS Level of Care Nursing/Assessment Patient Status: Established Patient Nursing Assessment/Reassesment: Medication Reconciliation, Update PMH in EMR and Vital Signs Coordination of Care: Complex Care and Chronic Disease 1-5, Education Complex Pt/Fam, Consent,records obtained, informed consent, Results/Orders obtained and Staff clarify orders Established Patient Charge Established Patient Point Assignment: 95 Established Patient Point Charge: EP Level 3 (80-115) MA Intake Visit Data Collection New Patient or Established: Established Patient (seen at [facility] within 3 years) Reason for Visit:: XRAY RESULTS/POST R TKA Seen by Clinical Staff ONLY (RN/MA): No Entry Level Web Developer Required: No PCP or OBGYN visit in last 3 months: Yes Hx Now: No Do You Feel Safe at Home: Yes Authorities Contacted: N/A Questionairres Past Medical History Past Medical History Have you ever been diagnosed with any of the following: Neurological Problems Seizures: No Cardiology Problems Hypercholesterolemia: Yes Congestive Heart Failure: No Edema: No Cellulitis: No Hypertension: Yes Varicose Veins: No Respiratory Problems Chronic Obstructive Pulmonary Disease (COPD): No Asthma: No Pneumonia: Yes Tuberculosis: No Sleep Apnea: Yes (was not able to use CPAP) Smoking: No Smoking Exposure: No Stomache/Intestinal Problems Hepatitis: No Gastrointestinal Bleed: Yes (ulcer) Ulcer: Yes Obesity: Yes Genital/Urinary Problems Renal Disease: No Musculoskeletal Problems Arthritis: Yes Endocrine Problems Diabetes Mellitus Type 1: No Diabetes Mellitus Type 2: Yes Blood Problems Anemia: Yes Sickle Cell Disease: No Other Problems Hospitalization: Yes Shingles: No Falls: No Blood Transfusions: Yes Blood Transfusion Reaction: No Anesthesia Reactions: No Chemotherapy: No Radiation Therapy: No MRSA: No Chicken Pox: Yes Measles: Yes Mumps: Yes Cancer: No Surgical History Pacemaker: No Subjective Visit Visit for: follow up visit, knee (RIGHT) and x-rays Immunization / Flu Flu Vaccine in the Last 12 Months: No Flu Vaccine Exclusion Criteria: No Exclusion Criteria History of Present Illness Chief complaint: Right total knee replacement Patient is doing great status post right total knee replacement 6 weeks ago. We discussed continued physical therapy. He is doing well. Pain Pain level (0-10): 0 Ambulatory data Ambulatory device: none Treatments Improvement with previous injections: No Improvement with PT: No Improvement with NSAIDS: no Review of Systems Review of Systems: All systems negative unless otherwise noted in HPI.
== END 2024-04-12 14:18 | disposition home or self-care (01) ==
LOC: HODSRG 14:08
PROVIDERS: Supervising Provider Orthopaedic Surgery Adult Reconstructive Orthopaedic Surgery; Visit Provider Orthopaedic Surgery Adult Reconstructive Orthopaedic Surgery
DX: M17.0 Bilateral primary osteoarthritis of knee (principal); Z96.651 Presence of right artificial knee joint
CPT/HCPCS: 99213; G0463

== ENCOUNTER → 2024-09-02 | Outpatient (CLI) | payer OTHER, MEDICAID, SELFPAY ==
[2024-09-02 09:57] LABS: Alanine Aminotransferase 18 U/L (10-49); Albumin, Serum 4.4 gm/dL (3.4-4.8); Alkaline Phosphatase 93 U/L (46-116); Aspartate Amino Transferase 17 U/L (0-34); Bilirubin,Direct 0.5 mg/dL (0.0-0.3); Bilirubin,Total 1.5 mg/dL (0.3-1.2); Total Protein 6.7 gm/dL (5.7-8.2)
== END | disposition home or self-care (01) ==
LOC: COPL 08:23
PROVIDERS: PCP Family Medicine; Referring Provider Registered Nurse; Visit Provider Registered Nurse
DX: B35.1 Tinea unguium (principal)
CPT/HCPCS: 36415; 80076

== ENCOUNTER → 2024-11-14 | Outpatient (CLI) | payer OTHER, MEDICAID, SELFPAY ==
[2024-11-14 12:21] LABS: Alanine Aminotransferase 15 U/L (10-49); Albumin, Serum 4.4 gm/dL (3.4-4.8); Alkaline Phosphatase 87 U/L (46-116); Aspartate Amino Transferase 13 U/L (0-34); Bilirubin,Direct 0.3 mg/dL (0.0-0.3); Bilirubin,Total 1.1 mg/dL (0.3-1.2); Glucose Estimated Average 105 mg/dL (80-131); Hemoglobin A1C 5.3 % Hgb (4.8-6.0); Total Protein 6.5 gm/dL (5.7-8.2)
[2024-11-14 12:21] LABS: Creatinine MALB Rnd Ur 178 mg/dL (30-125); Microalbumin Creat Ratio 8 mg/gCrea (<30); Microalbumin, Random Urine 14 mg/L (0-300)
== END | disposition home or self-care (01) ==
PROVIDERS: PCP Registered Nurse; Referring Provider Registered Nurse; Visit Provider Registered Nurse
DX: E11.65 Type 2 diabetes mellitus with hyperglycemia (principal); B35.1 Tinea unguium
CPT/HCPCS: 36415; 80076; 82043; 82570; 83036